=== PATIENT | male | born 1940 | race Caucasian/White ===

== ENCOUNTER 2017-11-28 19:28 | Emergency (ER) | payer OTHER ==
--- NOTE | 2017-11-28 19:32 | PDOC ---
History of Present Illness - General History Source: Patient Exam Limitations: No Limitations - History of Present Illness Initial Comments: 11/28/17 20:05 The patient is a 76 year old male with a significant past medical history of HTN who presents to the ED, via EMS, with lightheadedness earlier today. The patient reports lightheadedness while at home earlier today. He states when he lays down he cannot get up. Patient states he feels more uneasy than normal. Denies shortness of breath or chest pain. Denies fever or chills. Denies focal numbness, weakness or tingling. Denies headache or neck pain. Denies any other symptoms. PAST MEDICAL HISTORY: Hypertension PAST SURGICAL HISTORY: no significant history FAMILY HISTORY: no pertinent history SOCIAL HISTORY: Pt lives alone at home. MEDICATIONS: reviewed ALLERGIES: As per nursing notes General: No fevers or chills, no weakness, no weight loss HEENT: No change in vision. No sore throat,. No ear pain CardioVascular: No chest pain or shortness of breath Respiratory:No cough, or wheezing. Gastrointestinal: no nausea, vomiting, diarrhea or constipation, No rectal bleeding Genitourinary: No dysuria, hematuria, or frequency Musculoskeletal: No joint or muscle pain or swelling Neurologic: + lightheadedness. No headache, vertigo, or loss of consciousness Psychiatric: nor depression Skin: No rashes or easy bruising Endocrine: no increased thirst or abnormal weight change Allergic: no skin or latex allergy All other systems reviewed and normal General: Well-nourished well-developed individual, no acute distress HEENT: Throat: Normal, tonsils normal, no erythema or exudate Neck: Supple, no meningeal signs, no lymphadenopathy Eyes::Pupils equal reactive and round, extraocular motion intact Chest: Nontender to palpation Cardiac: S1-S2 normal, regular rate and rhythm, no murmurs rubs or gallops Respiratory: Lungs clear to auscultation bilateral Abdomen: Soft, nondistended, normal bowel sounds, nontender to palpation diffusely Extremities: Warm, dry, no cyanosis, clubbing, or edema Skin: No rashes Neuro: Alert and oriented x3, nonfocal exam, grossly intact, normal gait Psych: Normal mood and affect <Hemant José - Last Filed: 11/28/17 20:05> - General History Source: Patient Exam Limitations: No Limitations - History of Present Illness Initial Comments: A portion of this note was documented by scribe services under my direction. I have reviewed the details of the note, within reason, and agree with the documentation. The case summary and management plan written by me. Medical decision making this is a 76-year-old male who comes in via EMS for what he described initially as lightheadedness however on further questioning it appears that he really is more anxious than anything. Patient describes his lightheadedness as pacing and feeling like he doesn't want to sit down or lay down and feels anxious. However given his age of 76 I will obtain a basic workup including EKG, CBC, comp and her neck enzymes. While medicated patient with some Xanax Will reassess and reevaluate 11/28/17 20:49 Reassessment patient feels better post adnexal EKG shows normal sinus rhythm at a rate of 76, normal intervals no acute ST-T wave changes normal EKG Patient's workup shows a normal CBC with no elevation of white count or anemia and a normal differential Patient's troponin is in the measurable but indeterminate range His heart score is 3. Assessment and plan: This is 76-year-old male who comes in with anxiety. Patient did however receive a workup given his age and initial complaint of feeling lightheaded. Patient was given Xanax with improvement in his symptoms. Patient's workup was otherwise negative his heart score was 3 he will be discharged and told to follow-up with his primary care doctor. It should be noted the patient did also told nursing that he was short of breath however on my questioning and exam he denied any shortness of breath his lungs are clear and his respiratory rate was normal with a normal O2 sat. 11/28/17 20:52 <Manasa Lopes I - Last Filed: 11/28/17 20:54> - General Chief Complaint: Respiratory Stated Complaint: DIFFICULTY BREATHING Time Seen by Provider: 11/28/17 19:31 Past History <Hemant José - Last Filed: 11/28/17 20:05> - Past Medical History Anemia: No Asthma: No Cancer: Yes (SKIN CANCER) Cardiac Disorders: No CVA: No COPD: No CHF: No Dementia: No Diabetes: No GI Disorders: No Disorders: No HTN: Yes Hypercholesterolemia: No Liver Disease: No Seizures: No Thyroid Disease: No - Surgical History Abdominal Surgery: Yes (LEFT INGUINAL HERNIA REPAIRED) Appendectomy: No Cardiac Surgery: No Cholecystectomy: No Lung Surgery: No Neurologic Surgery: No Orthopedic Surgery: No - Suicide/Smoking/Psychosocial Hx Smoking History: Former smoker Have you smoked in the past 12 months: No Number of Cigarettes Smoked Daily: 0 If you are a former smoker, when did you quit?: 1956 Hx Alcohol Use: Yes (3x/week) Drug/Substance Use Hx: No Substance Use Type: Alcohol Hx Substance Use Treatment: No <Manasa Lopes I - Last Filed: 11/28/17 20:54> - Past Medical History Allergies/Adverse Reactions: Allergies Allergy/AdvReac Type Severity Reaction Status Date / Time No Known Drug Allergies Allergy Verified 08/22/16 09:01 SEASONAL ALLERGIES Allergy Mild SNEEZING Uncoded 04/02/14 09:39 Home Medications: Ambulatory Orders Irbesartan 300 mg PO DAILY 03/29/14 Amlodipine Besylate [Norvasc -] 11/28/17 *Physical Exam - Vital Signs Last Vital Signs Temp Pulse Resp BP Pulse Ox 98.2 F 89 16 165/82 100 11/28/17 19:30 11/28/17 19:30 11/28/17 19:30 11/28/17 19:30 11/28/17 19:30 <Hemant José - Last Filed: 11/28/17 20:05> Heart Score/ECG Review - History History: Slightly suspicious - Electrocardiogram EKG: Normal - Age Age: >/= 65 - Risk Factors Based on the list above the patient has:: 1-2 risk factors - Troponin Troponin: </= normal limit - Score Heart Score - Total: 3 <Manasa Lopes I - Last Filed: 11/28/17 20:54> ED Treatment Course - LABORATORY CBC & Chemistry Diagram: 11/28/17 20:08 11/28/17 20:08 <Manasa Lopes I - Last Filed: 11/28/17 20:54> *DC/Admit/Observation/Transfer - Attestations Scribe Attestion: 11/28/17 20:06 Documentation prepared by Hemant José, acting as director medical writing for Manasa Lopes MD <[email or web address] - Last Filed: 11/28/17 20:05> - Discharge Dispostion Admit: No <Manasa Lopes I - Last Filed: 11/28/17 20:54> Diagnosis at time of Disposition: Anxiety - Discharge Dispostion Disposition: HOME Condition at time of disposition: Stable - Referrals Referrals: Aixa Richards MD [Primary Care Provider] - - Patient Instructions Additional Instructions: I think your symptoms most likely are secondary to some mild anxiety.. Your workup was negative for any acute causes of your symptoms. It is important that you follow-up with your doctor next week if you continue to experience these symptoms. Return to the emergency department immediately with ANY new, persistent or worsening symptoms. Continue any medications as previously prescribed by your physician. You should follow up with your primary doctor as soon as possible regarding today's emergency department visit. . Please make sure your doctor reviews the results of your emergency evaluation. Thank you for coming to the Emergency Department today for your care. It was a pleasure to see you today. Please note that your evaluation is INCOMPLETE until you follow-up with your doctor. - Post Discharge Activity
[2017-11-28 19:44] VITALS: BP 165/82; PULSE 89; TEMP 98.2; BMI 25.1
[2017-11-28] MEDS ORDERED: ALPRAZolam 0.25 MG TABLET PO ONE (20:15)
[2017-11-28 20:19] LABS: BASO % 0.4 % (0-2.0); EOS % 0.8 % (0-4.5); HEMATOCRIT 43.8 % (35.4-49); LYMPH % 18.3 % (8-40); MCH 36.8 pg (25.7-33.7); MCHC 34.4 g/dl (32.0-35.9); MEAN CELL VOLUME 107.2 fl (80-96); MEAN PLT VOLUME 9.8 fl (7.5-11.1); MONO % 8.8 % (3.8-10.2); NEUT % 71.7 % (42.8-82.8); PLATELET COUNT 194 K/MM3 (134-434); RBC 4.08 M/mm3 (4.00-5.60); RDW 14.1 % (11.9-15.9); WHITE BLOOD COUNT 7.4 K/mm3 (4.0-10.8)
[2017-11-28] MEDS ORDERED: ALPRAZolam 0.25 MG TABLET ONE (20:22)
[2017-11-28 20:31] LABS: ALBUMIN 3.2 g/dl (3.5-5.0); ALK PHOS 35 U/L (32-92); ANION GAP 7 (8-16); BILIRUBIN,TOTAL 0.6 mg/dl (0.2-1.0); BLOOD UREA NITROGEN 15 mg/dl (7-18); CALCIUM 9.1 mg/dl (8.4-10.2); CHLORIDE 105 mmol/L (98-107); CO2 25 mmol/L (22-28); GLUCOSE,RANDOM 102 mg/dl (74-106); POTASSIUM 4.9 mmol/L (3.5-5.1); SGOT/AST 26 U/L (10-42); SGPT/ALT 14 U/L (10-40); SODIUM 137 mmol/L (136-145); TOT PROT 6.5 g/dl (6.4-8.3)
--- NOTE | 2017-11-29 20:01 | EKG ---
Test Reason : Blood Pressure : / mmHG Vent. Rate : 076 BPM Atrial Rate : 076 BPM P-R Int : 166 ms QRS Dur : 114 ms QT Int : 420 ms P-R-T Axes : 061 081 038 degrees QTc Int : 472 ms NORMAL SINUS RHYTHM WITH SINUS ARRHYTHMIA NORMAL ECG NO PREVIOUS ECGS AVAILABLE Confirmed by MEGAN DAMICO MD ([id number]) on 11/29/2017 8:00:56 PM Referred By: Confirmed By:MEGAN DAMICO MD
== END 2017-11-28 20:58 | disposition home or self-care (01) ==
LOC: FER 19:28
DX: F41.9 Anxiety disorder, unspecified (principal); I10 Essential (primary) hypertension
CPT/HCPCS: 36415; 80053; 82550; 84484; 85025; 93005; 99281-25